=== PATIENT | female | born 1980 | race Caucasian/White ===

== ENCOUNTER → 2020-10-05 07:30 | Outpatient (CLI) | payer OTHER, SELFPAY ==
[2020-10-05 08:25] LABS: Alanine Aminotransferase 14 IU/L (<35); Albumin 4.4 g/dL (3.5-5.0); Albumin Globulin Ratio 1.5 (1.0-2.8); Alkaline Phosphatase 45 U/L (38-126); Aspartate Aminotransferase 30 IU/L (14-36); BUN Creatinine Ratio 21.7 (6-22); Bilirubin Total 0.5 mg/dL (0.2-1.3); Blood Urea Nitrogen 13 mg/dL (7-17); Calcium 9.3 mg/dL (8.4-10.2); Carbon Dioxide 27 mmol/L (22-32); Chloride 104 mmol/L (98-107); Cholesterol 196 mg/dL (140-199); Estimated Glomerular Filt Rate > 60.0 mL/min (>60); Globulin 2.9 g/dL (1.7-4.1); Glucose 97 mg/dL (70-100); HDL Cholesterol 92 mg/dL (40-60); HEMOLYSIS < 15 (0-50); LDL Cholesterol Calculated 92 mg/dL (<100); Sodium 135 mmol/L (137-145); Total Protein 7.3 g/dL (6.3-8.2); Triglycerides 58 mg/dL (35-150)
[2020-10-05 08:27] LABS: Add Manual Diff / Slide Review NO; Basophils Absolute Auto 100 /uL (0-100); Basophils Percent Auto 1.8 % (0-2); Eosinophils Absolute Auto 200 /uL (0-450); Eosinophils Percent Auto 3.2 % (2-4); Hematocrit 34.5 % (36-46); Hemoglobin 11.1 g/dL (12.0-16.0); Lymphocytes Absolute Auto 1800 /uL (1100-4500); Lymphocytes Percent Auto 37.1 % (25-40); Mean Corpuscular HGB Conc 32.3 % (30-36); Mean Corpuscular Hemoglobin 22.5 PG (26-34); Mean Corpuscular Volume 69.8 fL (80-100); Monocytes Absolute Auto 500 /uL (0-900); Monocytes Percent Auto 11.1 % (3-14); Neutrophils Absolute Auto 2200 /uL (1500-7000); Neutrophils Percent Auto 46.8 % (50-75); Platelet Count 283 X10^3/uL (150-400); Red Blood Cell Count 4.94 X10^6/uL (4.0-5.2); Red Cell Distribution Width 16.4 % (11.6-14.8); White Blood Cell Count 4.8 X10^3/uL (4.5-11.0)
[2020-10-05 09:21] LABS: TSH w/ Reflex to FT4 3.71 uIU/mL (0.47-4.68)
[2020-10-05 09:39] LABS: Microcytosis 1+
[2020-10-05 09:42] LABS: Ovalocytes 2+
[2020-10-05 09:43] LABS: Anisocytosis 1+
== END ==
PROVIDERS: PCP Registered Nurse Diabetes Educator; Referring Provider Registered Nurse Diabetes Educator; Visit Provider Registered Nurse Diabetes Educator
DX: Z00.00 Encounter for general adult medical examination without abnormal findings (principal)
CPT/HCPCS: 36415; 80053; 80061; 84443; 85025

== ENCOUNTER → 2021-01-18 12:00 | Outpatient (CLI) | payer OTHER, SELFPAY ==
[2021-01-18 12:34] LABS: Hematocrit 39.1 % (36-46); Hemoglobin 13.2 g/dL (12.0-16.0); Mean Corpuscular HGB Conc 33.8 % (30-36); Mean Corpuscular Hemoglobin 28.1 PG (26-34); Platelet Count 337 X10^3/uL (150-400); Red Blood Cell Count 4.71 X10^6/uL (4.0-5.2); Red Cell Distribution Width 17.7 % (11.6-14.8); White Blood Cell Count 7.2 X10^3/uL (4.5-11.0)
[2021-01-18 14:59] LABS: Alanine Aminotransferase 14 IU/L (<35); Albumin 4.3 g/dL (3.5-5.0); Albumin Globulin Ratio 1.6 (1.0-2.8); Alkaline Phosphatase 45 U/L (38-126); Aspartate Aminotransferase 26 IU/L (14-36); Bilirubin Total 0.5 mg/dL (0.2-1.3); Blood Urea Nitrogen 11 mg/dL (7-17); Calcium 9.8 mg/dL (8.4-10.2); Carbon Dioxide 27 mmol/L (22-32); Chloride 103 mmol/L (98-107); Estimated Glomerular Filt Rate > 60.0 mL/min (>60); Globulin 2.7 g/dL (1.7-4.1); Glucose 87 mg/dL (70-100); HEMOLYSIS < 15 (0-50); Sodium 138 mmol/L (137-145)
[2021-01-18 15:23] LABS: TSH w/ Reflex to FT4 1.85 uIU/mL (0.47-4.68)
== END ==
PROVIDERS: PCP Registered Nurse Diabetes Educator; Referring Provider Nurse Practitioner Family; Visit Provider Nurse Practitioner Family
DX: F41.9 Anxiety disorder, unspecified (principal); N92.0 Excessive and frequent menstruation with regular cycle
CPT/HCPCS: 36415; 80053; 84443; 85027

== ENCOUNTER → 2021-01-24 10:24 | Outpatient (CLI) | payer OTHER, SELFPAY ==
--- NOTE | 2021-01-24 10:25 | DI.US.S_ITS ---
PROCEDURE: US PELVIC COMPLETE INDICATIONS: ABNORMAL BLEEDING TECHNIQUE: Real-time scanning was performed of the pelvic organs, with image documentation. Additional endovaginal scanning was necessary due to incomplete visualization of the adnexal and endometrial structures by transabdominal scanning. COMPARISON: None. FINDINGS: Uterus: Uterus is anteverted and normal in size at 4.5 x 5.9 x 10.6 cm. The endometrium measures 12.5 mm in combined thickness. Ovaries: The right ovary measures 4.0 x 2.1 x 2.2 cm and the left measures 2.0 by 0.9 x 1.8 cm. Other: No pathologic free abdominal or pelvic fluid. IMPRESSION: Nonspecific findings, endometrial lining thickness is near the upper limits of normal for ovulated in patient. The ovaries bilaterally show no sign of dominant cystic or solid mass or ovarian torsion. No abnormal endometrial fluid collection is found. Dictated by: Hadley Villalobos M.D. on 01/24/2021 at 13:43 Approved by: Hadley Villalobos M.D. on 01/24/2021 at 13:45
== END ==
PROVIDERS: PCP Registered Nurse Diabetes Educator; Referring Provider Nurse Practitioner Family; Visit Provider Nurse Practitioner Family
DX: N92.0 Excessive and frequent menstruation with regular cycle (principal)
CPT/HCPCS: 76830; 76856

== ENCOUNTER → 2021-06-11 08:39 | Outpatient (CLI) | payer OTHER, SELFPAY ==
--- NOTE | 2021-06-11 | DI.MG.S_ITS ---
BILATERAL DIGITAL SCREENING MAMMOGRAM 3D/2D WITH CAD: 06/11/2021 CLINICAL: Routine screening. Baseline exam. No prior exams were available for comparison. The tissue of both breasts is heterogeneously dense. This may lower the sensitivity of mammography. Current study was also evaluated with a Computer Aided Detection (CAD) system. There is a 0.7 cm oval focal asymmetry in the left breast at 12 o'clock in the retroareolar region. There also is a 0.6 cm oval focal asymmetry in the left breast at 2 o'clock posterior depth. No other significant masses, calcifications, or other findings are seen in either breast. IMPRESSION: INCOMPLETE: NEEDS ADDITIONAL IMAGING EVALUATION The 0.7 cm oval focal asymmetry in the left breast at 12 o'clock in the retroareolar region is indeterminate. Additional views with possible ultrasound are recommended. The 0.6 cm oval focal asymmetry in the left breast at 2 o'clock posterior depth is indeterminate. Additional views with possible ultrasound are recommended. This exam was interpreted at Station ID: [id number]. NOTE: For mammograms, a report in lay terms will be sent to the patient. Approximately 15% of breast malignancies will not be visualized mammographically. In the management of a palpable breast mass, a negative mammogram must not discourage biopsy of a clinically suspicious lesion. Electronically Signed By: Jesús camacho/fredy:06/11/2021 11:36:30 letter sent: Additional Imaging Needed ACR BI-RADS Category 0: Incomplete 3340F
== END ==
PROVIDERS: PCP Registered Nurse Diabetes Educator; Referring Provider Registered Nurse Diabetes Educator; Visit Provider Registered Nurse Diabetes Educator
DX: Z12.31 Encounter for screening mammogram for malignant neoplasm of breast (principal)
CPT/HCPCS: 77063; 77067

== ENCOUNTER → 2021-06-29 08:27 | Outpatient (CLI) | payer OTHER, SELFPAY ==
--- NOTE | 2021-06-29 | DI.US.S_ITS ---
LIMITED ULTRASOUND OF LEFT BREAST: 06/29/2021 CLINICAL: Patient returns today to evaluate focal asymmetries in the left breast. Comparison is made to exams dated: 06/29/2021 mammogram and 06/11/2021 mammogram - [facility]. Color flow ultrasound of the left breast 3 o'clock, 12 o'clock, and retroareolar regions was performed. Mason scale images of the real-time examination were reviewed. There is a benign 0.6 cm x 0.4 cm x 0.2 cm oval cyst with a smooth internal wall in the left breast at 12 o'clock in the retroareolar region. This oval cyst is anechoic with posterior acoustic enhancement. This correlates with mammography findings. There also is a benign 0.4 cm x 0.4 cm x 0.2 cm oval cyst with a smooth internal wall in the left breast at 3 o'clock posterior depth 5 cm from the nipple. This oval cyst is anechoic with posterior acoustic enhancement. This correlates with mammography findings. Color flow imaging demonstrates that there is no vascularity present. IMPRESSION: BENIGN There is no sonographic evidence of malignancy. The 0.6 cm x 0.4 cm x 0.2 cm oval cyst in the left breast at 12 o'clock in the retroareolar region is consistent with a simple cyst and is benign. The 0.4 cm x 0.4 cm x 0.2 cm oval cyst in the left breast at 3 o'clock posterior depth is consistent with a simple cyst and is benign. A 1 year screening mammogram is recommended. This exam was interpreted at Station ID: [id number]. Electronically Signed By: Jesús camacho/fredy:06/29/2021 10:25:52 letter sent: Normal Exam Ultrasound BI-RADS: 2 Benign
--- NOTE | 2021-06-29 | DI.MG.S_ITS ---
UNILATERAL LEFT DIGITAL DIAGNOSTIC MAMMOGRAM 3D/2D WITH ADDITIONAL VIEWS: 06/29/2021 CLINICAL: Additional evaluation requested from prior study. Comparison is made to exam dated: 06/11/2021 [facility]. The tissue of left breast is heterogeneously dense. This may lower the sensitivity of mammography. There is a 0.6 cm oval focal asymmetry with a circumscribed margin in the left breast at 12 o'clock in the retroareolar region. This is seen in additional views. There also is a 0.5 cm oval focal asymmetry with a circumscribed margin in the left breast at 3 o'clock posterior depth. This is seen in additional views. No other significant masses or calcifications are seen in the breast. IMPRESSION: INCOMPLETE: NEEDS ADDITIONAL IMAGING EVALUATION The 0.6 cm oval focal asymmetry in the left breast at 12 o'clock in the retroareolar region is indeterminate. An ultrasound is recommended. The 0.5 cm oval focal asymmetry in the left breast at 3 o'clock posterior depth is indeterminate. An ultrasound is recommended. This exam was interpreted at Station ID: [id number]. NOTE: For mammograms, a report in lay terms will be sent to the patient. Approximately 15% of breast malignancies will not be visualized mammographically. In the management of a palpable breast mass, a negative mammogram must not discourage biopsy of a clinically suspicious lesion. Electronically Signed By: Jesús camacho/fredy:06/29/2021 10:22:50 ACR BI-RADS Category 0: Incomplete 3340F
== END ==
PROVIDERS: PCP Registered Nurse Diabetes Educator; Referring Provider Registered Nurse Diabetes Educator; Visit Provider Registered Nurse Diabetes Educator
DX: R92.8 Other abnormal and inconclusive findings on diagnostic imaging of breast (principal); N60.02 Solitary cyst of left breast
CPT/HCPCS: 76642; 77065; G0279

== ENCOUNTER → 2021-10-10 09:35 | Outpatient (CLI) | payer OTHER, SELFPAY ==
--- NOTE | 2021-10-10 09:37 | DI.US.S_ITS ---
LIMITED ULTRASOUND OF RIGHT BREAST: 10/10/2021 CLINICAL: Palpable painful inflamed right breast lump x 5 days. Possible abscess. Comparison is made to exam dated: 06/11/2021 [facility]. Color flow and real-time ultrasound of the right breast 11 o'clock region were performed. Mason scale images of the real-time examination were reviewed. There is a 1 cm x 0.8 cm x 0.6 cm irregular abscess or phlegmon in the right breast at 10 o'clock posterior depth 1 cm from the nipple. This irregular abscess is of mixed echogenicity. This correlates to the reported pain, with area of redness, and area of clinical concern. Color flow imaging demonstrates that there is increased vascularity in surrounding tissue. IMPRESSION: SUSPICIOUS OF MALIGNANCY The 1 cm abscess or phlegmon in the right breast is at a low suspicion for malignancy. A follow-up right ultrasound in approximately 6 weeks is recommended to document improvement/resolution. Exam findings were conveyed to the patient. Patient is advised to monitor for significant change. Clinical follow-up is recommended. This exam was interpreted at Station ID: [id number]. Electronically Signed By: Angus Sanchez M.D. slc/:10/10/2021 10:10:54 letter sent: Followup Recommended Ultrasound BI-RADS: 4a Low suspicion for malignancy
== END ==
PROVIDERS: PCP Registered Nurse Diabetes Educator; Referring Provider Registered Nurse Diabetes Educator; Visit Provider Registered Nurse Diabetes Educator
DX: N63.11 Unspecified lump in the right breast, upper outer quadrant (principal); N64.4 Mastodynia
CPT/HCPCS: 76642

== ENCOUNTER 2021-10-11 15:35 | Emergency (ER) | payer OTHER, SELFPAY ==
[2021-10-11 15:39] VITALS: BP 177/110; PULSE 76; RESP 16; TEMP 36.9; O2SAT 98; BMI 18.8
--- NOTE | 2021-10-11 17:31 | ED_ITS ---
HPI - Skin/Abscess/Foreign Bdy <KAYLEEN Francis - Last Filed: 10/11/21 18:26> General Chief complaint: Skin/Abscess/Foreign Body Stated complaint: Rt breast abscess, wants it drained Time Seen by Provider: 10/11/21 17:31 History of Present Illness HPI narrative: 41-year-old female presents to the emergency department with right breast erythema and lump concerning for abscess and patient is hopeful for incision and drainage of this area. Patient is not , states that she has not had any trauma or injury to her breast. Patient is currently on a 10 day course of doxycycline, today is day 2 for this. She states that it has not gone down i n size but it has gone down in some of the inflammation surrounding. Patient states that she has an appointment Friday morning with her primary care provider for follow-up. Patient had an ultrasound completed yesterday and was sent Related Data Home Medications Medication Instructions Recorded Confirmed ferrous sulfate 325 mg (65 mg 325 mg PO DAILY 01/18/21 10/15/21 iron) tablet (Feosol) Previous Rx's Medication Instructions Recorded escitalopram oxalate 5 mg tablet 5 mg PO DAILY #90 tab 07/24/21 (Lexapro) doxycycline hyclate 100 mg tablet 100 mg PO BID #20 tab 10/09/21 Allergies Allergy/AdvReac Type Severity Reaction Status Date / Time Penicillins [PENICILLINS] Allergy Unknown Verified 10/15/21 13:42 Sulfa (Sulfonamide Allergy Unknown Verified 10/15/21 13:42 Antibiotics) [SULFA (SULFONAMIDE ANTIBIOTICS)] Patient History <KAYLEEN Francis - Last Filed: 10/11/21 18:26> Medical History Anxiety (12/2020) Heavy menstrual bleeding Family History Mother Age: 64 Hypertension Grandmother Mental health problem Social History Smoking Status: Never smoker Smoking Status: Never smoker alcohol intake frequency: holidays/special occasions only Exam <KAYLEEN Francis - Last Filed: 10/11/21 18:26> Initial Vital Signs Initial Vital Signs: Vital Signs Temperature 98.4 F 10/11/21 15:39 Pulse Rate 76 10/11/21 15:39 Respiratory Rate 16 10/11/21 15:39 Blood Pressure 177/110 H 10/11/21 15:39 Pulse Oximetry 98 10/11/21 15:39 <Valentina Yi DO - Last Filed: 10/14/21 09:44> Initial Vital Signs Initial Vital Signs: Vital Signs Temperature 98.4 F 10/11/21 15:39 Pulse Rate 76 10/11/21 15:39 Respiratory Rate 16 10/11/21 15:39 Blood Pressure 177/110 H 10/11/21 15:39 Pulse Oximetry 98 10/11/21 15:39 <Nelia Van DO - Last Filed: 10/16/21 07:39> Initial Vital Signs Initial Vital Signs: Vital Signs Temperature 98.4 F 10/11/21 15:39 Pulse Rate 76 10/11/21 15:39 Respiratory Rate 16 10/11/21 15:39 Blood Pressure 177/110 H 10/11/21 15:39 Pulse Oximetry 98 10/11/21 15:39 Course <KAYLEEN Francis - Last Filed: 10/11/21 18:26> Orders Ordered: Discontinued Medications Ketorolac Tromethamine (Ketorolac 30 Mg/Ml Vial) 15 mg IM NOW ONE Stop: 10/11/21 17:43 Last Admin: 10/11/21 18:03 Dose: 15 mg Documented by: TUAN Lidocaine/Sodium Bicarbonate (Lido 1%/Sod Bicarb 8.4% (10ml) 10 Ml Syringe) 10 ml INJ NOW ONE Stop: 10/11/21 17:32 Last Admin: 10/11/21 18:02 Dose: 10 ml Documented by: TUAN Vital Signs Vital signs: Vital Signs - 8 hr 10/11/21 15:39 10/11/21 18:08 Temperature 98.4 F Pulse Rate 76 75 Respiratory Rate 16 16 Blood Pressure 177/110 H 169/83 H Pulse Oximetry 98 100 <Valentina Yi DO - Last Filed: 10/14/21 09:44> Orders Ordered: Discontinued Medications Ketorolac Tromethamine (Ketorolac 30 Mg/Ml Vial) 15 mg IM NOW ONE Stop: 10/11/21 17:43 Last Admin: 10/11/21 18:03 Dose: 15 mg Documented by: RSTONE Lidocaine/Sodium Bicarbonate (Lido 1%/Sod Bicarb 8.4% (10ml) 10 Ml Syringe) 10 ml INJ NOW ONE Stop: 10/11/21 17:32 Last Admin: 10/11/21 18:02 Dose: 10 ml Documented by: RSTONE Vital Signs Vital signs: Vital Signs - 8 hr 10/11/21 15:39 10/11/21 18:08 Temperature 98.4 F Pulse Rate 76 75 Respiratory Rate 16 16 Blood Pressure 177/110 H 169/83 H Pulse Oximetry 98 100 <Nelia Van DO - Last Filed: 10/16/21 07:39> Orders Ordered: Discontinued Medications Ketorolac Tromethamine (Ketorolac 30 Mg/Ml Vial) 15 mg IM NOW ONE Stop: 10/11/21 17:43 Last Admin: 10/11/21 18:03 Dose: 15 mg Documented by: RSTONE Lidocaine/Sodium Bicarbonate (Lido 1%/Sod Bicarb 8.4% (10ml) 10 Ml Syringe) 10 ml INJ NOW ONE Stop: 10/11/21 17:32 Last Admin: 10/11/21 18:02 Dose: 10 ml Documented by: RSTONE Vital Signs Vital signs: Vital Signs - 8 hr 10/11/21 15:39 10/11/21 18:08 Temperature 98.4 F Pulse Rate 76 75 Respiratory Rate 16 16 Blood Pressure 177/110 H 169/83 H Pulse Oximetry 98 100 MDM - Skin/Abscess/Foreign Bdy <KAYLEEN Francis - Last Filed: 10/11/21 18:26> Imaging Data US breast: Radiologist's Impression: LIMITED ULTRASOUND OF RIGHT BREAST: 10/10/2021 CLINICAL: Palpable painful inflamed right breast lump x 5 days. Possible abscess.? ? Comparison is made to exam dated:? 06/11/2021 mammogram - [facility].? Color flow and real-time ultrasound of the right breast 11 o'clock region were performed. ?Mason scale images of the real-time examination were reviewed.? ? There is a 1 cm x 0.8 cm x 0.6 cm irregular abscess or phlegmon in the right breast at 10 o'clock posterior depth 1 cm from the nipple.? This irregular abscess is of mixed echogenicity.? This correlates to the reported pain, with area of redness, and area of clinical concern.? Color flow imaging demonstrates that there is increased vasc ularity in surrounding tissue.? ? ? IMPRESSION: SUSPICIOUS OF MALIGNANCY The 1 cm abscess or phlegmon in the right breast is at a low suspicion for malignancy.? ? A follow-up right ultrasound in approximately 6 weeks is recommended to document improvement/resolution. ? Exam findings were conveyed to the patient. Patient is advised to monitor for significant change. Clinical follow-up is recommended. ? This exam was interpreted at Station ID: [id number].? Electronically Signed By: Angus Sanchez M.D.? slc/:10/10/2021 10:10:54? ? ? letter sent: Followup Recommended? Ultrasound BI-RADS: 4a Low suspicion for malignancy [facility] Narrative Medical decision making narrative: 41-year-old female presents to the emergency department chief complaint of right breast abscess for the last week. She states that is been getting worse over the last 2 days, she has been on doxycycline for 2 days, without any reduction in size to the right breast abscess. Ultrasound of her right breast yesterday shows a 1 cm abscess or phlegmon at the 10:00 a.m. location of her right breast on the area line. This was incised and drained with a 22 gauge needle, purulence drainage was expressed approximately 5 mL. Sent for culture. Patient was instructed to continue on her doxycycline, patient tolerated procedure well, encouraged to continue warm compresses, she is given Toradol for pain, and encouraged to have close follow-up with her primary care provider on Friday as scheduled. Patient is appropriate and amenable to discharge home. Vital signs are stable on repeat examination is unremarkable. Patient has been informed of results. Patient has been given strict return to ER precautions for any new or worsening symptoms. Patient understands to follow up closely with outpatient providers as instructed. Patient understands plan and agrees to discharge home. All questions and concerns answered at this time. <Valentina Yi, DO - Last Filed: 10/14/21 09:44> [facility] Narrative Medical decision making narrative: 41-year-old female presents to the emergency department chief complaint of right breast abscess for the last week. She states that is been getting worse over the last 2 days, she has been on doxycycline for 2 days, without any reduction in size to the right breast abscess. Ultrasound of her right breast yesterday shows a 1 cm abscess or phlegmon at the 10:00 a.m. location of her right breast on the area line. This was incised and drained with a 22 gauge needle, purulence drainage was expressed approximately 5 mL. Sent for culture. Patient was instructed to continue on her doxycycline, patient tolerated procedure well, encouraged to continue warm compresses, she is given Toradol for pain, and encouraged to have close follow-up with her primary care provider on Friday as scheduled. Patient is appropriate and amenable to discharge home. Vital signs are stable on repeat examination is unremarkable. Patient has been informed of results. Patient has been given strict return to ER precautions for any new or worsening symptoms. Patient understands to follow up closely with outpatient providers as instructed. Patient understands plan and agrees to discharge home. All questions and concerns answered at this time. Patient culture shows Pseudomonas aeruginosa pansensitive except for imipenem. Patient was placed on doxycycline. Plan to recontact patient if improved in resolving does not have to change antibiotics as she has had I& D. If persistent changed to ciprofloxacin 500 mg p.o. b.i.d. x7 days, 14. Tablets. Discharge Plan Departure Patient Disposition: Home Clinical Impression: Abscess of breast Instructions: DI for Skin Abscess Activity Restrictions/Additional Instructions: *You have been diagnosed with an abscess of her right breast. Please continue warm compresses today and tomorrow to encourage pus to come to the surface. You may take ibuprofen starting tomorrow every 6 hours for your pain and inflammation, you may also take Tylenol if he needs that. Please continue the doxycycline for the full course. Please follow-up with your primary on Friday, may go to General surgery tomorrow if you feel like it is starting to get worse in fill back up but it will likely start getting better since he has been on antibiotics for 2 days now. Please stay hydrated, remember to eat food with your medications, return to the emergency department for any worsening of this, you may need to have this drained again if for some reason it fills back up. Thank you for trusting us with your care. *What to do: *Please continue to take your regular medications as directed. [ ] New medication prescriptions sent to your pharmacy: [ ] [ ] New medication written as a paper prescription [x ] No new medications given *Please follow up with your primary care provider in 2-3 days, call for an appointment. Let them know you were seen in the Emergency Department and that we ask that you be seen in follow up. We will electronically transmit a record of today's note if your PCP is in our system *If you do not have a primary care provider please contact the [facility] Resource line at [phone]. They will ask some questions about your medical history and help get you set up with a doctor in the community. *Return to Emergency Department if you should have any new, worsening or concerning symptoms, such as [fever greater than 101F, chills, worsening pain, persistent vomiting or other bothersome symptoms] Prescriptions: No Action escitalopram oxalate [Lexapro] 5 mg tablet 5 mg PO DAILY Qty: 90 3RF ferrous sulfate [Feosol] 325 mg (65 mg iron) tablet 325 mg PO DAILY 0RF doxycycline hyclate 100 mg tablet 100 mg PO BID Qty: 20 0RF Referrals: Nico Lucio ARNP [Primary Care Provider] - <Nelia Van DO - Last Filed: 10/16/21 07:39> Cosign ED Attending Euniceature Attestation: I was immediately available in the department for consultation. Documentation has been reviewed. I agree with assessment and plan.
[2021-10-11] MEDS: LIDO 1%/SOD BICARB 8.4% (10ML) 10 ML SYRINGE INJ (18:02)
[2021-10-11] MEDS: KETOROLAC 30 MG/ML VIAL 15 MG IM (18:03)
[2021-10-11 18:08] VITALS: BP 169/83; PULSE 75; RESP 16; O2SAT 100
== END 2021-10-11 18:22 | disposition home or self-care (01) ==
PROVIDERS: Emergency Provider Nurse Practitioner Critical Care Medicine; PCP Registered Nurse Diabetes Educator
DX: N61.1 Abscess of the breast and nipple (principal); B96.5 Pseudomonas (aeruginosa) (mallei) (pseudomallei) as the cause of diseases classified elsewhere
CPT/HCPCS: 10060; 87070; 87075; 87077; 87186; 87205; 96372; 99283; J1885

== ENCOUNTER → 2021-12-06 09:19 | Outpatient (CLI) | payer OTHER, SELFPAY ==
--- NOTE | 2021-12-06 09:19 | DI.US.S_ITS ---
ULTRASOUND OF RIGHT BREAST: 12/06/2021 CLINICAL: 6 week f/u abscess. Comparison is made to exams dated: 10/10/2021 ultrasound, 06/29/2021 mammogram, and 06/11/2021 mammogram - [facility]. Real-time ultrasound of the right breast was performed. Mason scale images of the real-time examination were reviewed. No significant abnormalities were seen sonographically in the right breast. Previously seen possible phlegmon versus early abscess has resolved. No sonographic visualized. IMPRESSION: NEGATIVE There is no sonographic evidence of malignancy. Recommend clinical follow up for any recurrent or worsening symptoms, or development of any new clinically suspicious findings. Return to annual mammogram screening schedule is recommended (approximately June 2022) Findings and recommendations were conveyed to the patient during today's evaluation. This exam was interpreted at Station ID: [id number]. Electronically Signed By: Nas Barrientos M.D. aty/:12/06/2021 10:00:27 letter sent: Clinical Evaluation Ultrasound BI-RADS: 1 Negative
== END ==
PROVIDERS: PCP Registered Nurse Diabetes Educator; Referring Provider Registered Nurse Diabetes Educator; Visit Provider Registered Nurse Diabetes Educator
DX: N61.1 Abscess of the breast and nipple (principal)
CPT/HCPCS: 76642

== ENCOUNTER 2022-06-05 04:29 | Emergency (ER) | payer OTHER, SELFPAY ==
[2022-06-05 04:38] VITALS: BP 152/83; PULSE 59; RESP 24; O2SAT 100
[2022-06-05 04:39] VITALS: BP 152/83; PULSE 59; RESP 16; TEMP 36.2; O2SAT 100; BMI 19.8
--- NOTE | 2022-06-05 04:42 | DI.CT.S_ITS ---
PROCEDURE: CT FACIAL BONES WO CON INDICATIONS: Fall/injury TECHNIQUE: Noncontrast 2.5 mm thick axial images acquired from the mandible through the frontal sinuses, with coronal and sagittal reformatting. For radiation dose reduction, the following was used: automated exposure control, adjustment of mA and/or kV according to patient size. COMPARISON: None. FINDINGS: Image quality: Excellent. Bones and teeth: Orbital samayoa are intact. Sinus samayoa show no fracture or deformity. Nasal bones and septum are intact. Visualized portions of the mandible demonstrate no fractures or subluxation. Zygomatic arches are intact. Pterygoid plates are intact. Visualized portions of the skull base and auditory canals are intact. Right manish bullosa. Mild leftward shift of the osseous nasal septum. Sinuses: Paranasal sinuses are aerated, without fluid levels, mucosal thickening, or mucoceles. Mastoid air cells are aerated. Soft tissues: No masses, or fluid collections. No enlarged lymph nodes. No soft tissue lacerations or debris. Right frontal scalp contusion/hematoma without underlying calvarial fracture. Vascular: Visualized vascular structures appear normal in the absence of contrast. Bony vascular foramina and canals are intact. IMPRESSION: Right frontal scalp contusion/hematoma without underlying calvarial fracture. No significant discrepancy with the welfare interviewer radiology preliminary report. Dictated by: Nas Barrientos M.D. on 06/05/2022 at 7:11 Approved by: Nas Barrientos M.D. on 06/05/2022 at 7:14
--- NOTE | 2022-06-05 04:42 | DI.CT.S_ITS ---
PROCEDURE: CT CERVICAL SPINE WO CON INDICATIONS: Fall/injury TECHNIQUE: Noncontrast 3 mm thick sections acquired from the skull base to the T4 level. Sagittal and coronal reformats were then constructed. For radiation dose reduction, the following was used: automated exposure control, adjustment of mA and/or kV according to patient size. COMPARISON: None. FINDINGS: Image quality: Excellent. Bones: There is a minimally displaced fracture involving the anterior, inferior tip of the C4 vertebral body near the base of a prominent anterior endplate osteophyte. No significant overlying soft tissue swelling. No dislocations. Straightening of cervical lordosis which may be due to patient positioning and/or concurrent muscle spasms. Multilevel cervical spondylosis most pronounced from C4-5 through C5-6. Craniocervical junction is intact. Visualized superior ribs are intact. Soft tissues: Prevertebral soft tissues are normal in thickness. No paravertebral hematomas. No apical pneumothoraces. IMPRESSION: 1. Very small, minimally displaced anterior inferior endplate fracture of C4 involving the base of a prominent endplate osteophyte. No significant overlying soft tissue swelling. Otherwise, no acute traumatic injuries identified in the cervical spine. 2. Multilevel cervical spondylosis. 3. Mild straightening of normal cervical lordosis likely related to positioning and/or concurrent muscle spasms. Findings were discussed with Dr. Van at 0820 hrs. Approved by: Nas Barrientos M.D. on 06/05/2022 at 8:22
--- NOTE | 2022-06-05 04:42 | DI.CT.S_ITS ---
PROCEDURE: CT HEAD/BRAIN WO CON INDICATIONS: Fall/pain TECHNIQUE: Noncontrast 4.5 mm thick angled axial sections acquired from the foramen magnum to the vertex, with coronal and sagittal reformats. For radiation dose reduction, the following was used: automated exposure control, adjustment of mA and/or kV according to patient size. COMPARISON: None. FINDINGS: Image quality: Excellent. CSF spaces: Basal cisterns are patent. No extra-axial fluid collections. Ventricles are normal in size and shape. Brain: No midline shift. No intracranial masses or hemorrhage. Mason-white matter interface is normal. Skull and face: Calvarium and visualized facial bones are intact, without suspicious lesions. Sinuses: Visualized sinuses and mastoids are clear. IMPRESSION: CT head without acute intracranial abnormalities. No acute calvarial fractures. No significant discrepancy with the asphalt mixer radiology preliminary report. Dictated by: Nas Barrientos M.D. on 06/05/2022 at 7:01 Approved by: Nas Barrientos M.D. on 06/05/2022 at 7:02
--- NOTE | 2022-06-05 04:45 | ED.SYNCOPE ---
HPI - Syncope General Chief Complaint: Syncope Stated Complaint: passed out and fell hit her face and head Time Seen by Provider: 06/05/22 04:38 Source: patient Mode of arrival: Ambulatory History of Present Illness HPI narrative: Patient here for syncope and injury to her face/lip. Patient states just prior to arrival she went to the bathroom. She does not recall if she passed out on the toilet or she stood up and passed out. She was within 1 body length of the toilet. 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 She did have a fainting episode and required stitching. No history of seizures no recent illness. No cough cold congestion fever chills or nausea vomiting diarrhea or fluid loss. Patient states can not confirm if she took an extra Lexapro pill today. However through the course of day no chest pain no dizziness no altered mental status. Patient is abrasion/bruising to the right lateral zygomatic arch. Patient also has small 5 mm right of philtrum upper lip. It does not touch the vermilion border. Denies any other injuries. No black or bloody stools Related Data Home Medications Medication Instructions Recorded Confirmed ferrous sulfate 325 mg (65 mg 325 mg PO DAILY 01/18/21 05/28/22 iron) tablet (Feosol) Previous Rx's Medication Instructions Recorded escitalopram oxalate 5 mg tablet 7.5 mg PO DAILY #135 tabs 05/28/22 (Lexapro) Allergies Allergy/AdvReac Type Severity Reaction Status Date / Time Penicillins [PENICILLINS] Allergy Unknown Verified 05/28/22 09:48 Sulfa (Sulfonamide Allergy Unknown Verified 05/28/22 09:48 Antibiotics) [SULFA (SULFONAMIDE ANTIBIOTICS)] Review of Systems Review of Systems Narrative: GENERAL: Denies chills, fatigue, malaise, fever, sweats. HEENT: Denies sinus pain, ear pain, sore throat RESPIRATORY: Denies dyspnea, cough CARDIOVASCULAR: Denies chest pain, palpitations GASTROINTESTINAL: Denies nausea, vomiting, abdominal pain : Denies dysuria, frequency, hematuria MUSCULOSKELETAL: Positive muscle or bony pain SKIN: Denies rash, skin lesions, positive skin injury NEUROLOGIC: Denies weakness, numbness ROS Unobtainable: All systems reviewed & are unremarkable except as noted in HPI and below Patient History Medical History Anxiety (12/2020) Heavy menstrual bleeding Family History Mother Age: 65 Hypertension Grandmother Mental health problem Social History Smoking Status: Never smoker Smoking Status: Never smoker alcohol intake frequency: holidays/special occasions only Exam Narrative Exam Narrative: GENERAL: in no distress, not toxic not dyspneic HEAD: Normocephalic. Abrasion to the right lateral zygomatic arch. EYES: Pupils equal round No scleral icterus. ENT: Mucous membranes moist. 5 mm superficial laceration right of midline/philtrum. No malocclusion or trismus. No drooling. No dental injury NECK: Trachea midline. No midline tenderness or step-off of the cervical spine CARDIOVASCULAR: Regular rate and rhythm without murmurs RESPIRATORY: Clear to auscultation. Breath sounds equal bilaterally. No wheezes, rales, or rhonchi. GASTROINTESTINAL: Abdomen soft, non-tender EXTREMITIES: No gross deformities. BACK: No flank tenderness. NEURO: AOx3. Clear speech no facial droop light touch intact to bilateral face and hands with strong equal engagement manager SKIN: Warm and dry PSYCH: Not anxious, is cooperative Initial Vital Signs Initial Vital Signs: Vital Signs Pulse Rate 59 L 06/05/22 04:38 Respiratory Rate 24 06/05/22 04:38 Blood Pressure 152/83 H 06/05/22 04:38 Pulse Oximetry 100 06/05/22 04:38 Procedures Laceration Repair Laceration 1: Time of procedure: 05:18 Site: other (Right lip) Side (If applicable): right Size (cm): 0.5 Description: linear Depth: simple, single layer Local Anesthetic: lidocaine 2% Amount of anesthesia used (mL): 0.5 Pre-repair: wound explored, irrigated extensively, deep structures intact and cleansed with chlorhexadine Skin layer closed with: nylon Skin layer suture size: 5-0 Number of sutures: 2 Technique: simple, interrupted Course Course Course Narrative: No new issues during course of stay Orders Ordered: ED Orders 06/05/22 04:30 COVID19 -Nasal RAPID/Pre-Proc Stat 06/05/22 04:42 CT cervical spine wo con Stat CT facial bones wo con Stat CT head/brain wo con Stat 06/05/22 04:45 CBC Auto Diff [Complete Blood Count AUTO DIFF] Stat CMP [Comprehensive Metabolic Panel] Stat D Dimer Stat Test Serum,Qual Stat Troponin & CK Cardiac Panel Stat 06/05/22 04:46 EKG-12 Lead Stat Discontinued Medications Bacitracin (Bacitracin Oint 0.9 Gm Pckt) 1 applic TOP NOW ONE Stop: 06/05/22 05:17 Last Admin: 06/05/22 05:30 Dose: 1 applic Documented By: TRAE Diphtheria/Tetanus/Acell Pertussis (Diph,Pertuss(Acell),Tet Vac/Pf 0.5 Ml Syringe) 0.5 ml IM .ONCE ONE Stop: 06/05/22 04:43 Last Admin: 06/05/22 05:24 Dose: Not Given Documented By: TRAE Diphtheria/Tetanus/Acell Pertussis (Tet,Diph,Pertuss(Acell),Vac/Pf 0.5 Ml Syringe) 0.5 ml IM .ONCE ONE Stop: 06/05/22 05:26 Last Admin: 06/05/22 05:30 Dose: 0.5 ml Documented By: TRAE Ibuprofen (Ibuprofen 400 Mg Tablet) 600 mg PO NOW ONE Stop: 06/05/22 05:17 Last Admin: 06/05/22 05:30 Dose: 600 mg Documented By: TRAE Reevaluation(s) Reevaluation #1: Reviewed results with patient. At this time they are reassuring. Event likely vasovagal syncope. Return precautions reviewed with patient. Patient does have family doctor to follow-up and for removal of 2 stitches. Wound care instructions given as well. Vital Signs Vital signs: Vital Signs - 8 hr 06/05/22 04:39 06/05/22 04:38 06/05/22 04:38 Temperature 97.1 F L Pulse Rate 59 L 59 L Respiratory Rate 16 24 Blood Pressure 152/83 H 152/83 H Pulse Oximetry 100 100 Oxygen Delivery Method Room Air 06/05/22 04:57 06/05/22 04:57 06/05/22 05:00 Temperature Pulse Rate 62 Respiratory Rate 13 Blood Pressure 147/73 H 140/75 Pulse Oximetry 100 Oxygen Delivery Method 06/05/22 05:00 06/05/22 05:30 06/05/22 05:30 Temperature Pulse Rate 60 62 Respiratory Rate 13 15 Blood Pressure 139/89 Pulse Oximetry 100 100 Oxygen Delivery Method 06/05/22 06:00 06/05/22 06:00 Temperature Pulse Rate 69 Respiratory Rate 13 Blood Pressure 129/89 Pulse Oximetry 100 Oxygen Delivery Method MDM - Syncope Differential Diagnosis Differential diagnosis: Likely syncope due to orthostatic hypotension, vasovagal syncope, pulmonary embolism and dehydration Lab Data Result diagrams: 06/05/22 04:45 06/05/22 04:45 Labs: Lab Results 06/05/22 06/05/22 06/05/22 Range/Units 04:30 04:45 04:45 WBC 6.8 (4.5-11.0) X10^3/uL RBC 4.71 (4.0-5.2) X10^6/uL Hgb 12.5 (12.0-16.0) g/dL Hct 37.5 (36-46) % MCV 79.5 L (80-100) fL MCH 26.4 (26-34) PG MCHC 33.2 (30-36) % RDW 14.1 (11.6-14.8) % Plt Count 311 (150-400) X10^3/uL Neut % (Auto) 53.5 (50-75) % Lymph % (Auto) 30.8 (25-40) % Grand % (Auto) 11.1 (3-14) % Eos % (Auto) 3.5 (2-4) % Baso % (Auto) 1.1 (0-2) % Neut # (Auto) 3700 (6395-7423) /uL Lymph # (Auto) 2100 (5741-9868) /uL Grand # (Auto) 800 (0-900) /uL Eos # (Auto) 200 (0-450) /uL Baso # (Auto) 100 (0-100) /uL D-Dimer 353 (<500) ng/ml Sodium (137-145) mmol/L Potassium (3.4-5.1) mmol/L Chloride (98-107) mmol/L Carbon Dioxide (22-32) mmol/L BUN (7-17) mg/dL Creatinine (0.52-1.04) mg/dL Estimated GFR (>60) mL/min BUN/Creatinine Ratio (6-22) Glucose (70-100) mg/dL Calcium (8.4-10.2) mg/dL Total Bilirubin (0.2-1.3) mg/dL AST (14-36) IU/L ALT (<35) IU/L Alkaline Phosphatase (38-126) U/L Total Creatine Kinase (30-135) U/L CK-MB (CK-2) CK-MB (CK-2) Rel Index Troponin I (0.01-0.034) ng/mL Total Protein (6.3-8.2) g/dL Albumin (3.5-5.0) g/dL Globulin (1.7-4.1) g/dL Albumin/Globulin Ratio (1.0-2.8) Serum , Qual (Negative) SARS-CoV-2 (PCR) Negative (Negative) 06/05/22 06/05/22 Range/Units 04:45 04:45 WBC (4.5-11.0) X10^3/uL RBC (4.0-5.2) X10^6/uL Hgb (12.0-16.0) g/dL Hct (36-46) % MCV (80-100) fL MCH (26-34) PG MCHC (30-36) % RDW (11.6-14.8) % Plt Count (150-400) X10^3/uL Neut % (Auto) (50-75) % Lymph % (Auto) (25-40) % Grand % (Auto) (3-14) % Eos % (Auto) (2-4) % Baso % (Auto) (0-2) % Neut # (Auto) (2757-6590) /uL Lymph # (Auto) (4512-8442) /uL Grand # (Auto) (0-900) /uL Eos # (Auto) (0-450) /uL Baso # (Auto) (0-100) /uL D-Dimer (<500) ng/ml Sodium 138 (137-145) mmol/L Potassium 4.0 (3.4-5.1) mmol/L Chloride 103 (98-107) mmol/L Carbon Dioxide 27 (22-32) mmol/L BUN 13 (7-17) mg/dL Creatinine 0.57 (0.52-1.04) mg/dL Estimated GFR > 60 (>60) mL/min BUN/Creatinine Ratio 22.8 H (6-22) Glucose 111 H (70-100) mg/dL Calcium 8.7 (8.4-10.2) mg/dL Total Bilirubin 0.3 (0.2-1.3) mg/dL AST 24 (14-36) IU/L ALT 16 (<35) IU/L Alkaline Phosphatase 49 (38-126) U/L Total Creatine Kinase 78 (30-135) U/L CK-MB (CK-2) TNP CK-MB (CK-2) Rel Index TNP Troponin I < 0.012 (0.01-0.034) ng/mL Total Protein 7.5 (6.3-8.2) g/dL Albumin 4.4 (3.5-5.0) g/dL Globulin 3.1 (1.7-4.1) g/dL Albumin/Globulin Ratio 1.4 (1.0-2.8) Serum , Qual Negative (Negative) SARS-CoV-2 (PCR) (Negative) Imaging Data CT scan - head: Radiologist's Impression: No acute abnormality CT - cervical spine: Radiologist's Impression: No acute traumatic injury CT facial bones: Radiologist's Impression: Right frontal cephalohematoma, no fracture is identified ECG Data Interpretation: Sinus bradycardia rate [address] elevation or depression MDM Narrative Medical decision making narrative: Appropriate for discharge home. Exam and laboratory studies and imaging are reassuring. Patient tolerated suturing very well. Return precautions reviewed patient. Patient likely had vasovagal syncope episode in the bathroom. Denied prevent chest pain palpitations dizziness. No black or bloody stools. Denies any alcohol use tonight. No recent illness cough cold congestion Discharge Plan Departure Patient Disposition: Home Clinical Impression: Vasovagal syncope, Contusion of face, Laceration of lip Instructions: DI for Laceration Repair, DI for Contusion Activity Restrictions/Additional Instructions: Clean skin wounds and laceration daily with warm soap and water and apply a thin layer of topical antibiotic. See family doctor in 7 days to have 2 stitches removed. Return if worse if any questions or concerns. Use provided ice pack 20 minutes at a time for pain and swelling. May continue home Tylenol or ibuprofen for pain. Prescriptions: No Action ferrous sulfate [Feosol] 325 mg (65 mg iron) tablet 325 mg PO DAILY escitalopram oxalate [Lexapro] 5 mg tablet 7.5 mg PO DAILY Qty: 135 3RF Referrals: Nico Lucio ARNP [Primary Care Provider] - Visit Report Forms: Patient Portal/API
[2022-06-05 04:57] VITALS: BP 147/73; PULSE 62; RESP 13; O2SAT 100
[2022-06-05 05:00] VITALS: BP 140/75; PULSE 60; RESP 13; O2SAT 100
[2022-06-05 05:00] LABS: Add Manual Diff / Slide Review NO; Basophils Absolute Auto 100 /uL (0-100); Basophils Percent Auto 1.1 % (0-2); Eosinophils Absolute Auto 200 /uL (0-450); Eosinophils Percent Auto 3.5 % (2-4); Hematocrit 37.5 % (36-46); Hemoglobin 12.5 g/dL (12.0-16.0); Lymphocytes Absolute Auto 2100 /uL (1100-4500); Lymphocytes Percent Auto 30.8 % (25-40); Mean Corpuscular HGB Conc 33.2 % (30-36); Mean Corpuscular Hemoglobin 26.4 PG (26-34); Mean Corpuscular Volume 79.5 fL (80-100); Monocytes Absolute Auto 800 /uL (0-900); Monocytes Percent Auto 11.1 % (3-14); Neutrophils Absolute Auto 3700 /uL (1500-7000); Neutrophils Percent Auto 53.5 % (50-75); Platelet Count 311 X10^3/uL (150-400); Red Blood Cell Count 4.71 X10^6/uL (4.0-5.2); Red Cell Distribution Width 14.1 % (11.6-14.8); White Blood Cell Count 6.8 X10^3/uL (4.5-11.0)
[2022-06-05 05:10] LABS: Alanine Aminotransferase 16 IU/L (<35); Albumin 4.4 g/dL (3.5-5.0); Albumin Globulin Ratio 1.4 (1.0-2.8); Alkaline Phosphatase 49 U/L (38-126); Aspartate Aminotransferase 24 IU/L (14-36); BUN Creatinine Ratio 22.8 (6-22); Bilirubin Total 0.3 mg/dL (0.2-1.3); Blood Urea Nitrogen 13 mg/dL (7-17); Calcium 8.7 mg/dL (8.4-10.2); Carbon Dioxide 27 mmol/L (22-32); Chloride 103 mmol/L (98-107); Creatine Kinase 78 U/L (30-135); Estimated Glomerular Filt Rate > 60 mL/min (>60); Globulin 3.1 g/dL (1.7-4.1); Glucose 111 mg/dL (70-100); HEMOLYSIS < 15 (0-50); Sodium 138 mmol/L (137-145); Total Protein 7.5 g/dL (6.3-8.2)
[2022-06-05 05:19] LABS: Pregnancy Test Serum,Qual Negative (Negative)
[2022-06-05 05:20] LABS: Troponin I < 0.012 ng/mL (0.01-0.034)
[2022-06-05 05:22] LABS: D Dimer 353 ng/ml (<500)
[2022-06-05 05:30] VITALS: BP 139/89; PULSE 62; RESP 15; O2SAT 100
[2022-06-05] MEDS: TET,DIPH,PERTUSS(ACELL),VAC/PF 0.5 ML SYRINGE IM (05:30)
[2022-06-05] MEDS: BACITRACIN OINT 0.9 GM PCKT 1 APPLIC TOP (05:30)
[2022-06-05] MEDS: IBUPROFEN 400 MG TABLET 600 MG PO (05:30)
[2022-06-05 05:55] LABS: COVID19 -Nasal RAPID Negative (Negative)
[2022-06-05 06:00] VITALS: BP 129/89; PULSE 69; RESP 13; O2SAT 100
--- NOTE | 2022-06-05 15:04 | PT-IP ANOTE ---
PT eval received and EMR reviewed. Checked on pt in the ED but pt was not in room. Nurse stated that pt discharged already.
== END 2022-06-05 06:09 | disposition home or self-care (01) ==
PROVIDERS: Emergency Provider Emergency Medicine; PCP Registered Nurse Diabetes Educator
DX: R55 Syncope and collapse (principal); S01.511A Laceration without foreign body of lip, initial encounter; S00.83XA Contusion of other part of head, initial encounter; Z20.822 Contact with and (suspected) exposure to COVID-19; Z23 Encounter for immunization
CPT/HCPCS: 12011; 36415; 70450; 70486; 72125; 80053; 82550; 84484; 84703; 85025; 85379; 87635; 90471; 93005; 99282; 99284; C9803; 90715

== ENCOUNTER 2022-06-05 11:42 | Emergency (ER) | payer OTHER, SELFPAY ==
[2022-06-05 11:58] VITALS: BP 160/81; PULSE 71; RESP 18; TEMP 36.8; O2SAT 100; BMI 19.8
--- NOTE | 2022-06-05 12:09 | PC.NURSE ---
Patient returns to ED this morning per physician instructions, Rehan.
--- NOTE | 2022-06-05 13:18 | ED.NECK ---
HPI - Neck Pain/Injury <KAYLEEN Francis - Last Filed: 06/05/22 13:26> General Chief Complaint: Neck Pain/Injury Stated Complaint: Fx in neck, In earlier today Time Seen by Provider: 06/05/22 12:08 Mode of arrival: Ambulatory History of Present Illness HPI Narrative: This is a 41-year-old female who was discharged this morning from the emergency department after a neck injury and she was called with her C-spine results after the read of her CT with a C4 endplate fracture without spinal protrusion. Dr. Bauman was consulted by Dr. Van, patient presents for application of [place] collar and understands instructions to follow-up with orthopedics in 1 week. She is here for this contact information and the Still[place] collar. She denies any new weakness, incontinence of bowel or bladder, any sensation changes, is ambulatory without any deficit, denies any muscle spasms, dizziness, radiation of pain or other complaint. Related Data Home Medications Medication Instructions Recorded Confirmed ferrous sulfate 325 mg (65 mg 325 mg PO DAILY 01/18/21 05/28/22 iron) tablet (Feosol) Previous Rx's Medication Instructions Recorded escitalopram oxalate 5 mg tablet 7.5 mg PO DAILY #135 tabs 05/28/22 (Lexapro) hydrocodone 5 mg-acetaminophen 325 1 tab PO BID PRN pain #10 tabs 06/05/22 mg tablet ketorolac 10 mg tablet 10 mg PO TID PRN pain 5 days #20 06/05/22 tabs methocarbamol 500 mg tablet 500 mg PO TID PRN muscle spasm #20 06/05/22 tabs Allergies Allergy/AdvReac Type Severity Reaction Status Date / Time Penicillins [PENICILLINS] Allergy Unknown Verified 05/28/22 09:48 Sulfa (Sulfonamide Allergy Unknown Verified 05/28/22 09:48 Antibiotics) [SULFA (SULFONAMIDE ANTIBIOTICS)] Review of Systems <KAYLEEN Francis - Last Filed: 06/05/22 13:26> Review of Systems Narrative: Review of systems is negative for acute abnormalities unless otherwise noted in HPI Patient History <KAYLEEN Francis - Last Filed: 06/05/22 13:26> Medical History Anxiety (12/2020) Heavy menstrual bleeding Family History Mother Age: 65 Hypertension Grandmother Mental health problem Social History Smoking Status: Never smoker Smoking Status: Never smoker alcohol intake frequency: holidays/special occasions only Exam <KAYLEEN Francis - Last Filed: 06/05/22 13:26> Narrative Exam Narrative: Reviewed vitals signs and nursing notes. General: cooperative, comfortable, in no acute distress, well groomed Patient fitted in [place] collar by Dr. Van who has experience fitting these. Patient denies any tenderness to palpation of her cervical spine, without any focal neuro deficits, bilateral upper extremities remain strong and equal, as well as lower extremities, sensation assessed and is equal bilaterally MSK: moves all extremities, neurovascularly intact, no weakness, normal tone Skin: brisk capillary refill, without pallor or erythema Neuro: normal speech and cognition, A&O x3, ambulatory, clear speech Psych: mental status is grossly normal, congruent mood, normal affect, pleasant and cooperative Initial Vital Signs Initial Vital Signs: Vital Signs Temperature 98.2 F 06/05/22 11:58 Pulse Rate 71 06/05/22 11:58 Respiratory Rate 18 06/05/22 11:58 Blood Pressure 160/81 H 06/05/22 11:58 Pulse Oximetry 100 06/05/22 11:58 Oxygen Delivery Method 06/05/22 11:58 <Nelia Van DO - Last Filed: 06/06/22 08:20> Initial Vital Signs Initial Vital Signs: Vital Signs Temperature 98.2 F 06/05/22 11:58 Pulse Rate 71 06/05/22 11:58 Respiratory Rate 18 06/05/22 11:58 Blood Pressure 160/81 H 06/05/22 11:58 Pulse Oximetry 100 06/05/22 11:58 Oxygen Delivery Method 06/05/22 11:58 Procedures <KAYLEEN Francis - Last Filed: 06/05/22 13:26> Orthopedic Splinting/Casting Injury #1: Other Orthopedic Equipment: other (aspen cervical collar) Post splinting neuro exam: intact Post splinting vascular exam: intact Placed by: Provider Course <KAYLEEN Francis - Last Filed: 06/05/22 13:26> Orders Ordered: ED Orders 06/05/22 12:29 Consult to Physical Therapy Evaluate & Treat Vital Signs Vital signs: Vital Signs - 8 hr 06/05/22 11:58 Temperature 98.2 F Pulse Rate 71 Respiratory Rate 18 Blood Pressure 160/81 H Pulse Oximetry 100 Oxygen Delivery Method Room Air <Nelia Van DO - Last Filed: 06/06/22 08:20> Orders Ordered: ED Orders 06/05/22 12:29 Consult to Physical Therapy Evaluate & Treat Vital Signs Vital signs: Vital Signs - 8 hr 06/05/22 11:58 Temperature 98.2 F Pulse Rate 71 Respiratory Rate 18 Blood Pressure 160/81 H Pulse Oximetry 100 Oxygen Delivery Method Room Air MDM - Neck Pain/Injury <KAYLEEN Francis - Last Filed: 06/05/22 13:26> MDM Narrative Medical decision making narrative: [place] [address] Emergency Report Patient: Veena Dillard MR#: [id number] : 1980 Acct:[id number] Age/Sex: 41 / F ? Date of Service: 06/05/22 ER Physician: Aubrey White MD ADDENDUMRadiology called this morning to discuss C-spine results.? It does appear that there is a C4 endplate fracture without spinal protrusion.? I spoken with Dr. Bauman who has reviewed the images herself agrees with Stillwater collar and follow up with ortho in about 1 week. I have called patient at her listed 5.? [phone] and left a message I also called her Quinton [phone] and left a message for him as well. Veena Dillard MR#: [id number] : 1980 Acct:[id number] Age/Sex: 41 / F Date of Service: 06/05/22 Loc: ED Accession Number: [id number] ?? Procedure: CT cervical spine wo con Ordering Provider: Aubrey White MD PROCEDURE:? CT CERVICAL SPINE WO CON ? INDICATIONS:? Fall/injury ? TECHNIQUE:? Noncontrast 3 mm thick sections acquired from the skull base to the T4 level.? Sagittal and coronal reformats were then constructed.? For radiation dose reduction, the following was used:? automated exposure control, adjustment of mA and/or kV according to patient size.? ? COMPARISON:? None. ? FINDINGS:? Image quality:? Excellent.? Bones:? There is a minimally displaced fracture involving the anterior, inferior tip of the C4 vertebral body near the base of a prominent anterior endplate osteophyte.? No significant overlying soft tissue swelling.? No dislocations.? Straightening of cervical lordosis which may be due to patient positioning and/or concurrent muscle spasms.? Multilevel cervical spondylosis most pronounced from C4-5 through C5-6.? Craniocervical junction is intact.? Visualized superior ribs are intact.? ? Soft tissues:? Prevertebral soft tissues are normal in thickness.? No paravertebral hematomas.? No apical pneumothoraces.? ? IMPRESSION:? 1. Very small, minimally displaced anterior inferior endplate fracture of C4 involving the base of a prominent endplate osteophyte.? No significant overlying soft tissue swelling.? Otherwise, no acute traumatic injuries identified in the cervical spine. ? 2. Multilevel cervical spondylosis. ? 3. Mild straightening of normal cervical lordosis likely related to positioning and/or concurrent muscle spasms. ? Findings were discussed with Dr. Van at 0820 hrs. ? ? Approved by: Nas Barrientos M.D. on 06/05/2022 at 8:22?? Addendum Documented By: Nelia Van D.O. 06/05/22 0846 Addendum Signed By: <Electronically signed by Nelia Van D.O.> 06/05/22845 MDM: Please review the addendum above, patient was fitted in the Stillwater collar, without any new focal neuro deficits, sensation or mobility changes. Patient understands to follow-up with Dr. Bauman at [facility] in 1 week, she was given contact information, limitations, a PT consult was placed but they were unavailable after multiple phone calls. Patient is appropriate and amenable to discharge home. Vital signs are stable on repeat examination is unremarkable. Patient has been informed of results. Patient has been given strict return to ER precautions for any new or worsening symptoms. Patient understands to follow up closely with outpatient providers as instructed. Patient understands plan and agrees to discharge home. All questions and concerns answered at this time. Discharge Plan Departure Patient Disposition: Home Clinical Impression: Defect of endplate of vertebra Strain of neck muscle Qualifiers: Encounter type: initial encounter Qualified Code(s): S16.1XXA - Strain of muscle, fascia and tendon at neck level, initial encounter Whiplash injury to neck Qualifiers: Encounter type: initial encounter Qualified Code(s): S13.4XXA - Sprain of ligaments of cervical spine, initial encounter Instructions: Whiplash, Neck Fracture, DI for Cervical Neck Fracture, DI for Neck Sprain Activity Restrictions/Additional Instructions: ?*You have been diagnosed with a C4 endplate fracture without spinal protrusion.? Sorry that this happened. Please use anti-inflammatories like Toradol 10 mg every 6-8 hours with food and water or ibuprofen 600 mg every 6 hours, take Tylenol and or hydrocodone as needed in addition to this. Please follow-up with Dr. Bauman in 1 week as planned. Do not lift more than 10 lb, no jarring activity, no back packs or weight on your shoulders, try to maintain normal alignment and avoid any more injuries. I hope you feel better soon. Please reach out if you have any concerns, if you feel unsafe, please come back to the emergency department. Please use the muscle relaxers as needed for muscle spasm, this happens from whiplash and gets worse after 24 hours typically. Please use heat, I brace on times. I wish you comfort with this process. CONTROLLED SUBSTANCE DISCHARGE (Narcotic/benzodiazepine/Flexeril/Phenergan) 1. You have been prescribed narcotic medications, it does have acetaminophen/Tylenol/paracetamol in it, DO NOT TAKE MORE THAN 4,00mg in 24 hours of Tylenol. *Tramadol does not contain tylenol. 2. Please understand that we cannot provide further refills of narcotics, benzodiazepines or controlled substances through the ED and her pain management will need to be through your provider. 3. While on these medications you cannot drive or operate heavy machinery. 4. You cannot sign legal documents or perform any duties such as this. 5. As long as you are taking opiate pain medications he should also be taking a stool softener such as Colace, Dulcolax, MiraLAX or prune juice, to help avoid constipation. *What to do: *Please continue to take your regular medications as directed. [ x] New medication prescriptions sent to your pharmacy: [ [facility]] [ ] New medication written as a paper prescription [ ] No new medications given *Please follow up with your primary care provider in 2-3 days, call for an appointment. Let them know you were seen in the Emergency Department and that we asked that you be seen for follow-up. We will electronically transmit a record of today's note if your PCP is in our system *If you do not have a primary care provider please contact [phone] to establish care with one of the [facility] primary care providers. *Return to Emergency Department if you should have any new, worsening, or concerning symptoms, such as [fever greater than 101F, chills, worsening pain, persistent vomiting or other bothersome symptoms]. Prescriptions: New ketorolac 10 mg tablet 10 mg PO TID PRN (Reason: pain) 5 Days Qty: 20 0RF methocarbamol 500 mg tablet 500 mg PO TID PRN (Reason: muscle spasm) Qty: 20 0RF hydrocodone-acetaminophen 5-325 mg tablet 1 tab PO BID PRN (Reason: pain) Qty: 10 0RF No Action ferrous sulfate [Feosol] 325 mg (65 mg iron) tablet 325 mg PO DAILY escitalopram oxalate [Lexapro] 5 mg tablet 7.5 mg PO DAILY Qty: 135 3RF Referrals: Nico Lucio ARNP [Primary Care Provider] - Aida Bauman MD [Physician] - (1 week) Visit Report Forms: Patient Portal/API <Nelia Van DO - Last Filed: 06/06/22 08:20> [facility] I called patient earlier in the day in regards to cervical fracture. I have seen evaluated her myself. Cervical strength and motor sensory is intact. Radian median and ulnar nerve is intact. She is tender on her neck. An [place] collar is placed and fitted is by myself. I have also educated her on log-rolling in given specific await limiting instructions. Dr. Bauman orthopedics is also aware agrees with these instructions and recommends outpatient follow-up. Patient is offered pain medication but states that she would just like to take Tylenol and ibuprofen if needed. I was immediately available in the department for consultation. Documentation has been reviewed. I agree with assessment and plan.
[2022-06-05 13:48] VITALS: BP 140/74; PULSE 73; RESP 18; O2SAT 100
[2022-06-05 14:09] VITALS: BP 142/72; PULSE 68; RESP 18; TEMP 36.8; O2SAT 97
== END 2022-06-05 14:10 | disposition home or self-care (01) ==
PROVIDERS: Emergency Provider Nurse Practitioner Critical Care Medicine; PCP Registered Nurse Diabetes Educator
DX: S12.300A Unspecified displaced fracture of fourth cervical vertebra, initial encounter for closed fracture (principal); S13.4XXA Sprain of ligaments of cervical spine, initial encounter; R55 Syncope and collapse

== ENCOUNTER 2022-06-08 15:25 | Emergency (ER) | payer OTHER, SELFPAY ==
[2022-06-08] VITALS (9 sets, daily range): BP systolic 131–146; BP diastolic 67–87; PULSE 61–77; RESP 18; TEMP 36.8; O2SAT 100; BMI 19.8
--- NOTE | 2022-06-08 16:11 | DI.RAD.S_ITS ---
PROCEDURE: XR CHEST 1V INDICATIONS: chest pain TECHNIQUE: One view of the chest was acquired. COMPARISON: [facility], CT, CT CERVICAL SPINE WO CON, 06/05/2022, 4:48. FINDINGS: Surgical changes and devices: None. Lungs and pleura: Lungs are clear. No pleural effusions or pneumothorax. Mediastinum: Mediastinal contours appear normal. Heart size is normal. Bones and chest wall: No suspicious bony lesions. Overlying soft tissues appear unremarkable. IMPRESSION: No acute cardiopulmonary abnormality. Dictated by: Angus Sanchez M.D. on 06/08/2022 at 16:05 Approved by: Angus Sanchez M.D. on 06/08/2022 at 16:06
[2022-06-08 17:03] LABS: Alanine Aminotransferase 17 IU/L (<35); Albumin 4.5 g/dL (3.5-5.0); Albumin Globulin Ratio 1.4 (1.0-2.8); Alkaline Phosphatase 60 U/L (38-126); Aspartate Aminotransferase 26 IU/L (14-36); BUN Creatinine Ratio 23.1 (6-22); Bilirubin Total 0.4 mg/dL (0.2-1.3); Blood Urea Nitrogen 12 mg/dL (7-17); Calcium 9.3 mg/dL (8.4-10.2); Carbon Dioxide 25 mmol/L (22-32); Chloride 104 mmol/L (98-107); Creatine Kinase 49 U/L (30-135); Estimated Glomerular Filt Rate > 60 mL/min (>60); Globulin 3.3 g/dL (1.7-4.1); Glucose 101 mg/dL (70-100); HEMOLYSIS < 15 (0-50); Lipase 95 U/L (23-300); Magnesium 1.8 mg/dL (1.6-2.3); Potassium 3.6 mmol/L (3.4-5.1); Sodium 137 mmol/L (137-145); Total Protein 7.8 g/dL (6.3-8.2)
[2022-06-08 17:04] LABS: Add Manual Diff / Slide Review NO; Basophils Absolute Auto 100 /uL (0-100); Basophils Percent Auto 0.6 % (0-2); Eosinophils Absolute Auto 100 /uL (0-450); Eosinophils Percent Auto 1.2 % (2-4); Hematocrit 36.7 % (36-46); Hemoglobin 12.1 g/dL (12.0-16.0); Lymphocytes Absolute Auto 1400 /uL (1100-4500); Lymphocytes Percent Auto 14.5 % (25-40); Mean Corpuscular Hemoglobin 26.4 PG (26-34); Monocytes Absolute Auto 800 /uL (0-900); Monocytes Percent Auto 8.6 % (3-14); Neutrophils Absolute Auto 7200 /uL (1500-7000); Neutrophils Percent Auto 75.1 % (50-75); Platelet Count 306 X10^3/uL (150-400); Red Blood Cell Count 4.59 X10^6/uL (4.0-5.2); Red Cell Distribution Width 14.7 % (11.6-14.8); White Blood Cell Count 9.6 X10^3/uL (4.5-11.0)
[2022-06-08 17:14] LABS: Troponin I < 0.012 ng/mL (0.01-0.034)
--- NOTE | 2022-06-08 17:26 | ED_ITS ---
HPI - Syncope General Chief Complaint: Syncope Stated Complaint: SYNCOPE DIZZY HEADACHE Time Seen by Provider: 06/08/22 16:21 Source: patient Mode of arrival: Ambulatory Limitations: no limitations History of Present Illness HPI narrative: 41-year-old female nonsmoker with a history recent syncopal episode resulting in head and neck injury with a nonsurgical cervical and plate fracture. She presents today with some increased dizziness that seems to be worse when she stands up. She has mild nausea but denies any vomiting. She has minimal headache. She denies any blurred vision or trouble with speech. She denies any extremity numbness, tingling or weakness. She denies chest pain or shortness of breath. She denies any abdominal pain. She denies numbness, tingling or weakness of her legs Related Data Home Medications Medication Instructions Recorded Confirmed ferrous sulfate 325 mg (65 mg 325 mg PO DAILY 01/18/21 05/28/22 iron) tablet (Feosol) Previous Rx's Medication Instructions Recorded escitalopram oxalate 5 mg tablet 7.5 mg PO DAILY #135 tabs 05/28/22 (Lexapro) hydrocodone 5 mg-acetaminophen 325 1 tab PO BID PRN pain #10 tabs 06/05/22 mg tablet ketorolac 10 mg tablet 10 mg PO TID PRN pain 5 days #20 06/05/22 tabs methocarbamol 500 mg tablet 500 mg PO TID PRN muscle spasm #20 06/05/22 tabs ondansetron 4 mg disintegrating 4 mg PO TID-QID PRN nausea and 06/08/22 tablet vomiting #10 tabs Allergies Allergy/AdvReac Type Severity Reaction Status Date / Time Penicillins [PENICILLINS] Allergy Unknown Verified 05/28/22 09:48 Sulfa (Sulfonamide Allergy Unknown Verified 05/28/22 09:48 Antibiotics) [SULFA (SULFONAMIDE ANTIBIOTICS)] Review of Systems Review of Systems Narrative: GENERAL: Denies chills, fatigue, malaise, fever, sweats. HEENT: Denies sinus pain, ear pain, sore throat, difficulty swallowing, di zziness. RESPIRATORY: Denies dyspnea, cough, wheezing, hemoptysis, sputum. CARDIOVASCULAR: Denies chest pain, palpitations, orthopnea, edema, GASTROINTESTINAL: See HP : Denies dysuria, frequency, incontinence, hematuria, urinary retention. MUSCULOSKELETAL: denies weakness, joint pain, or bony pain SKIN: Denies rash, skin lesions, or other NEUROLOGIC: See HPI PSYCHIATRIC: No concerning psychosocial issues. 12 point review of systems is negative except for those stated above Patient History Medical History Anxiety (12/2020) Heavy menstrual bleeding Family History Mother Age: 65 Hypertension Grandmother Mental health problem Social History Smoking Status: Never smoker Smoking Status: Never smoker alcohol intake frequency: holidays/special occasions only Substance Use Type: does not use Exam Narrative Exam Narrative: GENERAL: [41] year old patient appears stated age. Well-developed patient, in mild distress. HEAD: Atraumatic. Normocephalic. EYES: Pupils equal round and reactive. Extraocular motions intact. No scleral icterus. No injection or drainage. ENT: Nose without bleeding, purulent drainage. Throat without erythema, tonsillar hypertrophy or exudate. Airway patent. NECK: Trachea midline. Non tender CARDIOVASCULAR: Regular rate and rhythm without murmurs, gallops, or rubs. RESPIRATORY: Clear to auscultation. Breath sounds equal bilaterally. No wheezes, rales, or rhonchi. GASTROINTESTINAL: Abdomen soft, non-tender, nondistended. EXTREMITIES: No edema or joint tenderness. BACK: Nontender without deformity or crepitance. No flank tenderness. NEURO: AOx3. SKIN: No rash or erythema of visible areas Initial Vital Signs Initial Vital Signs: Vital Signs Temperature 98.2 F 06/08/22 15:58 Pulse Rate 63 06/08/22 15:58 Respiratory Rate 18 06/08/22 15:58 Blood Pressure 145/87 H 06/08/22 15:58 Pulse Oximetry 100 06/08/22 15:58 Oxygen Delivery Method 06/08/22 15:58 Course Orders Ordered: Discontinued Medications Sodium Chloride (Normal Saline 0.9%) 1,000 mls @ 1,000 mls/hr IV BOLUS ONE Stop: 06/08/22 18:57 Last Infusion: 06/08/22 19:40 Dose: 0 mls/hr Documented By: Admin: 06/08/22 18:40 Dose: 1,000 mls/hr Documented By: KRIS Ondansetron HCl (Ondansetron 4 Mg Odt Prepack) 1 bottle MISC SEEINSTR ONE Stop: 06/08/22 19:31 Last Admin: 06/08/22 20:16 Dose: 1 bottle Documented By: MEGHAN Vital Signs Vital signs: Vital Signs - 8 hr 06/08/22 15:58 06/08/22 17:51 06/08/22 17:51 Temperature 98.2 F Pulse Rate 63 71 Respiratory Rate 18 Blood Pressure 145/87 H 131/71 Pulse Oximetry 100 100 Oxygen Delivery Method Room Air 06/08/22 17:53 06/08/22 17:53 06/08/22 18:00 Temperature Pulse Rate 77 67 Respiratory Rate Blood Pressure 146/67 H Pulse Oximetry 100 100 Oxygen Delivery Method 06/08/22 18:01 06/08/22 18:01 Temperature Pulse Rate 65 Respiratory Rate Blood Pressure 134/78 Pulse Oximetry 100 Oxygen Delivery Method MDM - Syncope Lab Data Result diagrams: 06/08/22 16:30 06/08/22 16:30 Labs: Lab Results 06/08/22 06/08/22 Range/Units 16:30 16:30 WBC 9.6 (4.5-11.0) X10^3/uL RBC 4.59 (4.0-5.2) X10^6/uL Hgb 12.1 (12.0-16.0) g/dL Hct 36.7 (36-46) % MCV 80.0 (80-100) fL MCH 26.4 (26-34) PG MCHC 33.0 (30-36) % RDW 14.7 (11.6-14.8) % Plt Count 306 (150-400) X10^3/uL Neut % (Auto) 75.1 H (50-75) % Lymph % (Auto) 14.5 L (25-40) % Stevens % (Auto) 8.6 (3-14) % Eos % (Auto) 1.2 L (2-4) % Baso % (Auto) 0.6 (0-2) % Neut # (Auto) 7200 H (5928-3307) /uL Lymph # (Auto) 1400 (7536-1844) /uL Stevens # (Auto) 800 (0-900) /uL Eos # (Auto) 100 (0-450) /uL Baso # (Auto) 100 (0-100) /uL Sodium 137 (137-145) mmol/L Potassium 3.6 (3.4-5.1) mmol/L Chloride 104 (98-107) mmol/L Carbon Dioxide 25 (22-32) mmol/L BUN 12 (7-17) mg/dL Creatinine 0.52 (0.52-1.04) mg/dL Estimated GFR > 60 (>60) mL/min BUN/Creatinine Ratio 23.1 H (6-22) Glucose 101 H (70-100) mg/dL Calcium 9.3 (8.4-10.2) mg/dL Magnesium 1.8 (1.6-2.3) mg/dL Total Bilirubin 0.4 (0.2-1.3) mg/dL AST 26 (14-36) IU/L ALT 17 (<35) IU/L Alkaline Phosphatase 60 (38-126) U/L Total Creatine Kinase 49 (30-135) U/L CK-MB (CK-2) TNP CK-MB (CK-2) Rel Index TNP Troponin I < 0.012 (0.01-0.034) ng/mL Total Protein 7.8 (6.3-8.2) g/dL Albumin 4.5 (3.5-5.0) g/dL Globulin 3.3 (1.7-4.1) g/dL Albumin/Globulin Ratio 1.4 (1.0-2.8) Lipase 95 (23-300) U/L Imaging Data CT scan - head: Radiologist's Impression: Close Head CT (Signed) Oumar Schuler - 06/08/22 Chest X-Ray (Signed) Call,Angus - 06/08/[address] (Signed) Nas Barrientos - 06/05/[address] (Signed) Nas Barrientos - 06/05/[address] (Signed) Nas Barrientos - 06/05/22 Breast Ultrasound (Signed) Nas Barrientos - 12/06/21 Breast Ultrasound (Addendum) Angus Sanchez - 10/10/21 Mammogram, Additional Views (Signed) Jesús Gonzalez - 06/29/21 Breast Ultrasound (Signed) LisaJesús - 06/29/21 Mammogram Screening (Signed) GonzalezYouw - 06/11/21 EKG Rpt. 01/24/21 Pelvis Ultrasound (Signed) Hadley Villalobos - 01/24/21 Launch?Image [address] [address] [address] Scan Report Signed Patient: Veena Dillard MR#: [id number] : 1980 Acct:[id number] Age/Sex: 41 / F Date of Service: 06/08/22 Loc: ED Accession Number: [id number] ?? Procedure: CT head/brain wo con Ordering Provider: Jermain Wilcox D.O. PROCEDURE:? CT HEAD/BRAIN WO CON ? INDICATIONS:? recent fall, head injury ? TECHNIQUE:? Noncontrast 4.5 mm thick angled axial sections acquired from the foramen magnum to the vertex, with coronal and sagittal reformats.? For radiation dose reduction, the following was used:? automated exposure control, adjustment of mA and/or kV according to patient size.? ? COMPARISON:? [facility], CT, CT HEAD/BRAIN WO CON, 06/05/2022, 4:48. ? FINDINGS:? Image quality:? Excellent.? ? CSF spaces:? Basal cisterns are patent.? No extra-axial fluid collections.? Ventricles are normal in size and shape.? ? Brain:? No midline shift.? No intracranial masses or hemorrhage.? Mason-white matter interface is normal.? ? Skull and face:? Calvarium and visualized facial bones are intact, without suspicious lesions.? ? Sinuses:? Visualized sinuses and mastoids are clear.? ? IMPRESSION:? No acute intracranial abnormality. ? ? ? Dictated by: Oumar Schuler M.D. on 06/08/2022 at 18:39 ? ? Approved by: Oumar Schuler M.D. on 06/08/2022 at 18:39 ? Chest x-ray: Radiologist's Impression: Veena Dillard??41??F??1980 ? Allergy/Adv: Penicillins, Sulfa (Sulfonamide Antibiotics) (More??) Close Head CT (Signed) Oumar Schuler - 06/08/22 Chest X-Ray (Signed) Sai Sanchezn - 06/08/[address] (Signed) Nas Barrientos - 06/05/[address] (Signed) Nas Barrientos - 06/05/[address] (Signed) Nas Barrientos - 06/05/22 Breast Ultrasound (Signed) Nas Barrientos - 12/06/21 Breast Ultrasound (Addendum) Sai Sanchezn - 10/10/21 Mammogram, Additional Views (Signed) Jesús Gonzalez - 06/29/21 Breast Ultrasound (Signed) Jesús Gonzalez - 06/29/21 Mammogram Screening (Signed) Jesús Gonzalez - 06/11/21 EKG Rpt. 01/24/21 Pelvis Ultrasound (Signed) Hadley Villalobos - 01/24/21 Launch?[address] [address] XRay Report Signed Patient: Veena Dillard MR#: [id number] : 1980 Acct:[id number] Age/Sex: 41 / F Date of Service: 06/08/22 Loc: ED Accession Number: [id number] ?? Procedure: XR chest 1V Ordering Provider: Jermain Wilcox D.O. PROCEDURE:? XR CHEST 1V ? INDICATIONS:? chest pain ? TECHNIQUE:? One view of the chest was acquired.? ? COMPARISON:? [facility], CT, CT CERVICAL SPINE WO CON, 06/05/2022, 4:48. ? FINDINGS:? ? Surgical changes and devices:? None.? ? Lungs and pleura:? Lungs are clear.? No pleural effusions or pneumothorax.? ? Mediastinum:? Mediastinal contours appear normal.? Heart size is normal.? ? Bones and chest wall:? No suspicious bony lesions.? Overlying soft tissues appear unremarkable.? ? IMPRESSION:? No acute cardiopulmonary abnormality. ? ? ? Dictated by: Angus Sanchez M.D. on 06/08/2022 at 16:05 ? ? Approved by: Angus Sanchez M.D. on 06/08/2022 at 16:06 ? MDM Narrative Medical decision making narrative: Patient has reassuring history and physical exam and complains only of some lightheadedness, particularly upon standing. No red flag symptoms such as vomiting, blurred vision, trouble with speech, ataxia. Head CT is unremarkable. Patient tolerating orals, has stable vitals and likely some element dehydration, postconcussive syndrome. Return precautions discussed and questions answered to their apparent satisfaction Discharge Plan Departure Patient Disposition: Home Clinical Impression: Post-concussion syndrome, Acute dehydration Instructions: DI for Concussion, DI for Dehydration -- Adult Activity Restrictions/Additional Instructions: *You have been diagnosed with [dizziness due to postconcussive syndrome and soem element of dehydration ] *What to do: *Please continue to take your regular medications as directed. A prescription for Zofran was sent to [facility] in [place] for you. You have a slight concussion and will likely have a mild headache and some nausea for a few days. Avoiding highly stimulating activities and even TV or computers may be helpful in minimizing your symptoms. Avoid activities that will put you at risk for another head injury for at least a week. You can take tylenol or motrin for headache or the prescription provided for nausea/vomiting. Return for worsening or persistent symptoms *Please follow up with your primary care provider in 2-3 days, call for an appointment. Let them know you were seen in the Emergency Department and that we ask that you be seen in follow up. We will electronically transmit a record of today's note if your PCP is in our system *Return to Emergency Department if you should have any new, worsening or concerning symptoms, such as [fever greater than 101 F, shaking chills, worsening pain, persistent vomiting or other bothersome symptoms] Prescriptions: New ondansetron 4 mg tablet,disintegrating 4 mg PO TID-QID PRN (Reason: nausea and vomiting) Qty: 10 0RF No Action ferrous sulfate [Feosol] 325 mg (65 mg iron) tablet 325 mg PO DAILY escitalopram oxalate [Lexapro] 5 mg tablet 7.5 mg PO DAILY Qty: 135 3RF ketorolac 10 mg tablet 10 mg PO TID PRN (Reason: pain) 5 Days Qty: 20 0RF methocarbamol 500 mg tablet 500 mg PO TID PRN (Reason: muscle spasm) Qty: 20 0RF hydrocodone-acetaminophen 5-325 mg tablet 1 tab PO BID PRN (Reason: pain) Qty: 10 0RF Referrals: Nico Lucio ARNP [Primary Care Provider] - Visit Report Forms: Patient Portal/API
--- NOTE | 2022-06-08 17:58 | DI.CT.S_ITS ---
PROCEDURE: CT HEAD/BRAIN WO CON INDICATIONS: recent fall, head injury TECHNIQUE: Noncontrast 4.5 mm thick angled axial sections acquired from the foramen magnum to the vertex, with coronal and sagittal reformats. For radiation dose reduction, the following was used: automated exposure control, adjustment of mA and/or kV according to patient size. COMPARISON: [facility], CT, CT HEAD/BRAIN WO CON, 06/05/2022, 4:48. FINDINGS: Image quality: Excellent. CSF spaces: Basal cisterns are patent. No extra-axial fluid collections. Ventricles are normal in size and shape. Brain: No midline shift. No intracranial masses or hemorrhage. Mason-white matter interface is normal. Skull and face: Calvarium and visualized facial bones are intact, without suspicious lesions. Sinuses: Visualized sinuses and mastoids are clear. IMPRESSION: No acute intracranial abnormality. Dictated by: Oumar Schuler M.D. on 06/08/2022 at 18:39 Approved by: Oumar Schuler M.D. on 06/08/2022 at 18:39
[2022-06-08] MEDS: SODIUM CHLORIDE 0.9% 1,000 ML 1000 ML IV (18:40)
--- NOTE | 2022-06-08 19:15 | PC.NURSE ---
Report received - assumed care of pt at this time - resting quietly in NAD
--- NOTE | 2022-06-08 19:30 | PC.NURSE ---
MD at bedside - pt to be DC'd home after IV fluid completed and pt able to ambulate freely
--- NOTE | 2022-06-08 20:08 | PC.NURSE ---
Ambulatory to the bathroom with steady gait unassisted - family present
[2022-06-08] MEDS: ONDANSETRON 4 MG ODT PREPACK 1 BOTTLE MISC (20:16)
== END 2022-06-08 20:23 | disposition home or self-care (01) ==
PROVIDERS: Emergency Provider Emergency Medicine; PCP Registered Nurse Diabetes Educator
DX: G44.319 Acute post-traumatic headache, not intractable (principal); F07.81 Postconcussional syndrome; E86.0 Dehydration; R11.0 Nausea; R07.9 Chest pain, unspecified
CPT/HCPCS: 36415; 70450; 71045; 80053; 82550; 83690; 83735; 84484; 85025; 93005; 96360; 99284

== ENCOUNTER → 2022-08-29 14:42 | Outpatient (CLI) | payer OTHER, SELFPAY ==
--- NOTE | 2022-08-29 | DI.MG.S_ITS ---
BILATERAL DIGITAL SCREENING MAMMOGRAM 3D/2D WITH CAD: 08/29/2022 CLINICAL: Routine screening. Comparison is made to exams dated: 06/11/2021 mammogram and 06/29/2021 mammogram - [facility]. Both breasts are heterogeneously dense, which may obscure small masses (category c / 51-75% glandular tissue). Current study was also evaluated with a Computer Aided Detection (CAD) system. No significant masses, calcifications, or other findings are seen in either breast. There has been no significant interval change. IMPRESSION: NEGATIVE There is no mammographic evidence of malignancy. A 1 year screening mammogram is recommended. Based on the Tyrer Cuzick model (a risk assessment model) the patient's lifetime risk is 13.0% and her 10 year risk is 1.9%. According to the ACR, ACS, and NCCN guidelines, an annual breast MRI exam along with mammogram is recommended if the patient's lifetime risk is 20% or greater. This exam was interpreted at Station ID: [id number]. NOTE: For mammograms, a report in lay terms will be sent to the patient. Approximately 15% of breast malignancies will not be visualized mammographically. In the management of a palpable breast mass, a negative mammogram must not discourage biopsy of a clinically suspicious lesion. Electronically Signed By: Angus aguila/fredy:09/04/2022 12:50:12 letter sent: Normal Exam ACR BI-RADS Category 1: Negative 3341F
== END ==
PROVIDERS: PCP Registered Nurse Diabetes Educator; Referring Provider Registered Nurse Diabetes Educator; Visit Provider Registered Nurse Diabetes Educator
DX: Z12.31 Encounter for screening mammogram for malignant neoplasm of breast (principal)
CPT/HCPCS: 77063; 77067

== ENCOUNTER → 2023-04-22 12:00 | Outpatient (CLI) | payer OTHER, SELFPAY ==
--- NOTE | 2023-04-22 12:02 | DI.RAD.S_ITS ---
PROCEDURE: XR HAND LT MIN 3V INDICATIONS: forceful extension ring finger, pain/swelling 4th metacarpal TECHNIQUE: 3 views of the hand(s) acquired. COMPARISON: None. FINDINGS: Bones: Mildly displaced fracture of the 4th metacarpal. Carpal bones are normally aligned. No suspicious bony lesions. Soft tissues: No suspicious soft tissue calcifications. IMPRESSION: Left 4th metacarpal fracture. Dictated by: Namrata Hooper MD, PhD on 04/22/2023 at 13:08 Approved by: Namrata Hooper MD, PhD on 04/22/2023 at 13:08
== END ==
PROVIDERS: PCP Registered Nurse Diabetes Educator; Referring Provider Physician Assistant; Visit Provider Physician Assistant
DX: S62.305A Unspecified fracture of fourth metacarpal bone, left hand, initial encounter for closed fracture (principal); X58.XXXA Exposure to other specified factors, initial encounter
CPT/HCPCS: 73130

== ENCOUNTER → 2023-09-09 15:50 | Outpatient (CLI) | payer OTHER, SELFPAY ==
--- NOTE | 2023-09-09 | DI.MG.S_ITS ---
BILATERAL DIGITAL SCREENING MAMMOGRAM 3D/2D WITH CAD: 09/09/2023 CLINICAL: Routine screening. Comparison is made to exams dated: 08/29/2022 mammogram and 06/11/2021 mammogram - [facility]. Both breasts are heterogeneously dense, which may obscure small masses (category c / 51-75% glandular tissue). Current study was also evaluated with a Computer Aided Detection (CAD) system. No significant masses, calcifications, or other findings are seen in either breast. There has been no significant interval change. IMPRESSION: NEGATIVE There is no mammographic evidence of malignancy. A 1 year screening mammogram is recommended. Based on the Tyrer Cuzick model (a risk assessment model) the patient's lifetime risk is 12.9% and her 10 year risk is 2.1%. According to the ACR, ACS, and NCCN guidelines, an annual breast MRI exam along with mammogram is recommended if the patient's lifetime risk is 20% or greater. This exam was interpreted at Station ID: [id number]. NOTE: For mammograms, a report in lay terms will be sent to the patient. Approximately 15% of breast malignancies will not be visualized mammographically. In the management of a palpable breast mass, a negative mammogram must not discourage biopsy of a clinically suspicious lesion. Electronically Signed By: Nas wheatley/fredy:09/10/2023 07:51:13 letter sent: Normal Exam ACR BI-RADS Category 1: Negative [id number]
== END ==
PROVIDERS: PCP Registered Nurse Diabetes Educator; Referring Provider Registered Nurse Diabetes Educator; Visit Provider Registered Nurse Diabetes Educator
DX: Z12.31 Encounter for screening mammogram for malignant neoplasm of breast (principal); R92.333 Mammographic heterogeneous density, bilateral breasts
CPT/HCPCS: 77063; 77067

== ENCOUNTER → 2024-09-22 11:03 | Outpatient (CLI) | payer OTHER, SELFPAY ==
--- NOTE | 2024-09-22 11:04 | DI.MG.S_ITS ---
BILATERAL DIGITAL SCREENING MAMMOGRAM 3D/2D WITH CAD: 09/22/2024 CLINICAL: Routine screening. Comparison is made to exams dated: 09/09/2023 mammogram, 08/29/2022 mammogram, 06/11/2021 mammogram, and 06/29/2021 mammogram - [facility]. The breasts are heterogeneously dense, which may obscure small masses (category c / 51-75% glandular tissue). Current study was also evaluated with a Computer Aided Detection (CAD) system. No significant masses, calcifications, or other findings are seen in either breast. There has been no significant interval change. IMPRESSION: NEGATIVE There is no mammographic evidence of malignancy. A 1 year screening mammogram is recommended. Based on the Tyrer Cuzick model (a risk assessment model) the patient's lifetime risk is 12.8% and her 10 year risk is 2.2%. According to the ACR, ACS, and NCCN guidelines, an annual breast MRI exam along with mammogram is recommended if the patient's lifetime risk is 20% or greater. This exam was interpreted at Station ID: [id number]. NOTE: For mammograms, a report in lay terms will be sent to the patient. Approximately 15% of breast malignancies will not be visualized mammographically. In the management of a palpable breast mass, a negative mammogram must not discourage biopsy of a clinically suspicious lesion. Electronically Signed By: Rosie San M.D., Ph.D. scarlet/fredy:09/23/2024 09:20:48 letter sent: Normal Exam ACR BI-RADS Category 1: Negative
== END ==
PROVIDERS: PCP Registered Nurse Diabetes Educator; Referring Provider Registered Nurse Diabetes Educator; Visit Provider Registered Nurse Diabetes Educator
DX: Z12.31 Encounter for screening mammogram for malignant neoplasm of breast (principal); R92.333 Mammographic heterogeneous density, bilateral breasts
CPT/HCPCS: 77063; 77067

== ENCOUNTER → 2024-11-10 08:44 | Outpatient (CLI) | payer OTHER, SELFPAY ==
[2024-11-10 09:19] LABS: Hematocrit 39.5 % (36-46); Hemoglobin 13.4 g/dL (12.0-16.0); Mean Corpuscular HGB Conc 33.9 % (30-36); Mean Corpuscular Hemoglobin 29.6 PG (26-34); Mean Corpuscular Volume 87.3 fL (80-100); Platelet Count 274 X10^3/uL (150-400); Red Blood Cell Count 4.52 X10^6/uL (4.0-5.2); White Blood Cell Count 5.1 X10^3/uL (4.5-11.0)
[2024-11-10 09:37] LABS: Alanine Aminotransferase 17 IU/L (<35); Albumin 4.7 g/dL (3.5-5.0); Albumin Globulin Ratio 1.8 (1.0-2.8); Alkaline Phosphatase 52 U/L (38-126); Aspartate Aminotransferase 28 IU/L (14-36); BUN Creatinine Ratio 22.2 (6-22); Bilirubin Total 0.7 mg/dL (0.2-1.3); Blood Urea Nitrogen 14 mg/dL (7-17); Calcium 9.7 mg/dL (8.4-10.2); Carbon Dioxide 26 mmol/L (22-32); Chloride 103 mmol/L (98-107); Cholesterol 213 mg/dL (140-199); Estimated Glomerular Filt Rate > 60 mL/min (>60); Globulin 2.6 g/dL (1.7-4.1); Glucose 95 mg/dL (70-100); HDL Cholesterol 90 mg/dL (40-60); HEMOLYSIS < 15 (0-50); LDL Cholesterol Calculated 109 mg/dL (<100); Potassium 4.1 mmol/L (3.4-5.1); Sodium 137 mmol/L (137-145); Total Protein 7.3 g/dL (6.3-8.2); Triglycerides 68 mg/dL (35-150)
[2024-11-10 10:11] LABS: TSH w/ Reflex to FT4 2.07 uIU/mL (0.47-4.68)
== END ==
PROVIDERS: PCP Registered Nurse Diabetes Educator; Referring Provider Registered Nurse Diabetes Educator; Visit Provider Registered Nurse Diabetes Educator
DX: Z00.00 Encounter for general adult medical examination without abnormal findings (principal)
CPT/HCPCS: 36415; 80053; 80061; 84443; 85027